=== PATIENT | male | born 1975 | race Caucasian/White ===

== ENCOUNTER 2018-04-06 14:07 | Emergency (ER) | payer OTHER ==
[2018-04-06] MEDS: KETOROLAC 60 MG INJ IM (15:44)
[2018-04-06] MEDS: ONDANSETRON (ODT) 4 MG TAB ODT (15:45)
[2018-04-06 16:12] LABS: ADD UMIC YES; UR ASCORBIC ACID NEGATIVE (NEGATIVE); UR BACTERIA FEW /HPF (NONE SEEN); UR BILIRUBIN (Dip) NEGATIVE (NEGATIVE); UR BLOOD (Dip) 3+ mg/dL (NEGATIVE); UR CLARITY CLEAR (CLEAR); UR COLOR YELLOW (YELLOW); UR GLUCOSE (Dip) NEGATIVE (NEGATIVE); UR KETONES (Dip) NEGATIVE (NEGATIVE); UR LEUKOCYTE ESTERASE (Dip) NEGATIVE Leu/ul (NEGATIVE); UR NITRITE (Dip) NEGATIVE (NEGATIVE); UR RBC > 182 /HPF (0-5); UR SPECIFIC GRAVITY (Dip) 1.011 (1.003-1.030); UR TOTAL PROTEIN (Dip) NEGATIVE (NEGATIVE); UR UROBILINOGEN (Dip) NEGATIVE (NEGATIVE); UR WBC 11 /HPF (0-5)
[2018-04-06] MEDS: LORAZEPAM 0.5 MG TAB PO (19:26)
== END 2018-04-06 19:29 | disposition home or self-care (01) ==
LOC: FTE 14:07
DX: N23 Unspecified renal colic (principal)
CPT/HCPCS: 74176; 81001; 96372; 99285-25